=== PATIENT | female | born 1995 | race Caucasian/White ===

== ENCOUNTER 2024-04-07 10:42 | Inpatient (IN) | payer OTHER, SELFPAY ==
[2024-04-07] VITALS (32 sets, daily range): BP systolic 106–141; BP diastolic 51–86; PULSE 70–106; RESP 17–18; TEMP 36.9; O2SAT 98–99
[2024-04-07 10:58] LABS: Nitrazine Paper, PH Positive
[2024-04-07 11:12] LABS: Basophils % 0.3 %; Eosinophils # 0.1 10^3/uL (0.0-0.8); Eosinophils % 0.5 %; Hematocrit 34.8 % (36-47); Lymphocytes # 1.7 10^3/uL (0.8-4.8); Lymphocytes % 14.3 %; Mean Corpuscular HGB Conc 32.2 g/dL (30-55); Mean Corpuscular Hemoglobin 26.5 pg (27-33); Mean Corpuscular Volume 82.3 fl (85-98); Mean Platelet Volume 10.9 fL (7.4-10.4); Monocytes # 0.9 10^3/uL (0.2-0.9); Monocytes % 7.8 %; Neutrophils # 8.98 10^3/uL (1.8-7.7); Neutrophils % 76.5 %; Nucleated Red Blood Cells % 0 %; Platelet Count 230 10^3/cmm (157-399); Red Blood Count 4.23 10^6/uL (3.85-5.65); Red Cell Distribution Width 17.4 % (12.1-15.1); White Blood Count 11.74 10^3/uL (3.29-11.43)
[2024-04-07] MEDS: miSOPROStol 100 mcg tablet 25 MCG SUBLINGUAL ×3 (11:43→22:35)
--- NOTE | 2024-04-07 12:20 | PM.OPHPUD ---
Labor & Delivery H&P Update Date of Procedure: April 07, 2024 Date H&P Performed: 04/05/24 Changes to previous documentation: Spontaneous rupture of membranes Admission Diagnosis: 29-year-old 1 at 39 weeks estimated gestational age with spontaneous rupture membranes Planned procedure: Spontaneous vaginal delivery Other information: The patient is a pleasant 29-year-old female who is 39 weeks estimated gestational age presenting with spontaneous rupture membranes. She is having some contractions, but she is not feeling them. Her membranes ruptured at around 4:00 this morning. Otherwise her has been unremarkable. Her blood type is a positive. Her antibody screen is negative. Her glucose screen was 138. Related Problem List Diagnoses (1) 39 weeks gestation of : (2) Spontaneous rupture of membranes: A&P Assessment and plan (1) 39 weeks gestation of : We will augment labor as needed. The patient desires a natural labor. Status: Acute (2) Spontaneous rupture of membranes: Status: Acute PDMP PDMP Reviewed: Not Reviewed
[2024-04-07] MEDS: fentaNYL 50 mcg/mL INJ 2mL IVP ×2 (15:25→17:46)
[2024-04-07] MEDS: sodium chloride 0.9% 1,000 ML 999 ML IV ×2 (17:45→18:55)
--- NOTE | 2024-04-07 19:30 | ANES.PROC ---
Anesthesia Procedures Procedure/Date: 04/07/24 Epidural: Time Out Performed: Yes Consents Signed: Procedure Consent Consent: from patient, risks and benefits reviewed and patient agrees to proceed Lumbar Level: L3-L4 Epidural position: sitting Epidural procedure: sterile prep of area, 1% lidocaine to numb the area, 18 g needle, negative for paresthesia passed, test dose given, 1.5% xylocaine 1:200k epi, placed PCEA, no systemic response, sterile dressing applied, L.U.D. no apparent complications and 0.2% Ropiavacaine @ mls/hr (11) Additional Comments: HANS at 7, taped at 14 at skin. negative heme/CSF upon aspiration. tolerated well.
--- NOTE | 2024-04-07 19:30 | P.ANESUD_ITS ---
Pre-Anesthetic Update Pre-Anesthetic Assessment: Date of Surgery/Procedure: 04/07/24 Preop Ashley gnosis: labor pain Proposed Procedure: epidural Any changes to Pre-Anesthetic Assessment?: No Last Intake: 0500 on 04/07 Labs Last 48hrs: Short CBC 04/07/24 Range/Units 10:25 WBC 11.74 H (3.29-11.43) 10^ 3/uL Hgb 11.20 L (11.27-16.99) g/ dL Hct 34.8 L (36-47) % MCV 82.3 L (85-98) fl Plt Count 230 (157-399) 10^3/c mm Neut % (Auto) 76.5 % Neut # (Auto) 8.98 H (1.8-7.7) 10^3/u L Blood Bank 04/07/24 10:25 Blood Type A Positive Rho(D) Type Rh positive Antibody Screen Negative Vitals: Pulse Rate 96 04/07/24 19:33 Pulse Rhythm Regular 04/07/24 11:11 Pulse Strength 3+ Normal 04/07/24 11:11 Respiratory Rate 18 04/07/24 17:46 Respiratory Effort Spontaneous, Non- Labored 04/07/24 17:46 Respiratory Depth Normal 04/07/24 17:46 Respiratory Patter n Normal 04/07/24 17:46 Blood Pressure 138/64 04/07/24 19:33 Pulse Oximetry 99 04/07/24 19:33 Oxygen Delivery Me thod Room Air 04/07/24 11:11 Exam: Pre-Anes Outpt Exam: alert and oriented x 3 Cardiac Studies: No Data to Display
[2024-04-07] MEDS: sodium chloride 0.9% 1,000 ML 125 ML IV (22:34)
[2024-04-07] MEDS: ROPivacaine syringe 100 MG/50 ML SYRINGE 11 MG EPIDURAL (22:56)
[2024-04-08] VITALS (57 sets, daily range): BP systolic 102–140; BP diastolic 57–78; PULSE 75–113; RESP 16–20; TEMP 36.7–39.2; O2SAT 99
[2024-04-08] MEDS: ROPivacaine syringe 100 MG/50 ML SYRINGE 11 MG EPIDURAL ×2 (02:52→08:53)
[2024-04-08] MEDS: ondansetron 2 mg/ML SDV 2 mL 4 MG IVP ×2 (03:31→07:15)
[2024-04-08] MEDS: oxytocin 30 UNIT/500 ML BAG IV (06:13)
[2024-04-08] MEDS: dextrose 5%-lactated ringers 1,000 ML 125 ML IV ×2 (06:31→10:28)
[2024-04-08] MEDS: ampicillin 2,000 MG in sodium chloride 0.9% (plus) 50 ML 100 MG IV (06:32)
--- NOTE | 2024-04-08 08:05 | ANES.PROC ---
Anesthesia Procedures Procedure/Date: 04/08/24 Other Information: Called to bedside by RN stating pt has a hotspot in right hip. Assessed pt at bedside, pt c/o sharp, burning pain in right hip, rating pain 10/10. 3ml 0.25% bupivacaine and 100mcg fentanyl via epidural. Pt reassessed 10 min later and she states the pain has resolved.
[2024-04-08] MEDS: ampicillin 1,000 MG in sodium chloride 0.9% (plus) 50 ML 100 MG IV (10:28)
--- NOTE | 2024-04-08 11:45 | P.PCNOB_ITS ---
Delivery Note: Date of delivery: April 08, 2024 Pre-delivery diagnoses: 29-year-old 1 at 39 weeks estima tiara gestational age presenting with spontaneous rupture membranes Post-delivery diagnoses: Status post spontaneous vaginal delivery Procedure: Spontaneous vaginal delivery Delivering Physician: Jayy Levi Estimated blood loss (mL): 100 Pre-Delivery Course: The patient presented to the hospital with spontaneous rupture of membranes. She is having minimal contractions, and was not making change. As result Cytotec 25 mcg was placed multiple times. In addition her labor was augmented with Pitocin. An epidural was placed. The patient did have a temperature of 99.9 at about 24 hours post rupture membranes. I elected to place her on ampicillin. She progressed to complete. Delivery: DELIVERY: The patient progressed to complete without difficulty. She delivered a male with a weight of 6 pounds 9 ounces with Apgars of 3, 7. The baby was delivered from the DOMINGO position and placed on the mother's abdomen. The cord was then clamped and cut. There was a nuchal cord x 1 which was easily reduced over the head prior to delivery of the shoulder. There was no meconium. The placenta and 3 vessel cord were delivered intact shortly thereafter. The perineum and vaginal vault were carefully examined. A first-degree posterior midline tear was noted. It was repaired with 3-0 Vicryl in usual fashion.. Both the mother and the baby were in stable condition. Post-Delivery Status: Good A&P Assessment and plan (1) Spontaneous vaginal delivery: I anticipate routine care. (2) 39 weeks gestation of : PDMP PDMP Reviewed: Not Reviewed Coding Level of Care Code Acute Code for Chg Fwd Diagnoses Spontaneous vaginal delivery O80 39 weeks gestation of Z3A.39
--- NOTE | 2024-04-08 14:23 | PC.NURSE ---
Patient moved to room assisted by nurses by ambulation.
[2024-04-08] MEDS: docusate sodium 100 mg Capsule PO ×2 (18:45→20:21)
[2024-04-08] MEDS: ibuprofen 800 mg tablet PO (20:21)
[2024-04-09 03:57] VITALS: BP 136/85; PULSE 69; RESP 16; TEMP 36.7; O2SAT 97
[2024-04-09 04:40] LABS: Hematocrit 31.1 % (36-47); Mean Corpuscular HGB Conc 32.2 g/dL (30-55); Mean Corpuscular Hemoglobin 26.9 pg (27-33); Mean Corpuscular Volume 83.6 fl (85-98); Mean Platelet Volume 11.2 fL (7.4-10.4); Platelet Count 197 10^3/cmm (157-399); Red Blood Count 3.72 10^6/uL (3.85-5.65); Red Cell Distribution Width 18.2 % (12.1-15.1)
[2024-04-09] MEDS: docusate sodium 100 mg Capsule PO (08:59)
[2024-04-09] MEDS: ibuprofen 800 mg tablet PO ×2 (08:59→15:10)
[2024-04-09] MEDS: PRENATAL VIT NO.130/IRON/FOLIC 1 EACH TABLET PO (08:59)
--- NOTE | 2024-04-09 09:44 | P.DS_ITS ---
Discharge Providers [facility] Date of Admission: 04/07/24 10:42 Date of Discharge: 04/09/24 Attending Provider at Admission: Jayy Levi MD Attending Provider at Discharge: Jayy Levi MD Diagnoses at Discharge Discharge Diagnosis (1) Spontaneous vaginal delivery: Status: Acute (2) 39 weeks gestation of : Status: Acute Reason for Visit Reason for Visit: poss rom Hospital Course Hospital Course The patient arrived at the hospital spontaneous rupture membranes. Her labor was augmented with Cytotec. She progressed to complete and had an unremarkable delivery of a healthy appearing male infant. Her course has also been unremarkable. She is breast-feeding some but is converting more to bottlefeeding. Her bleeding has been within normal limits. Her pain is been well-controlled. Information Peripartum Data: Infant Delivery Method: Vaginal Physical Exam Narrative: The patient is alert. She appears comfortable. Her heart has a regular rate and rhythm with no murmurs appreciated. Lungs are clear to auscultation bilaterally. Her fundus is firm and below the umbilicus. Urinary Catheter Management: Johnson: Cath Placed During This Visit: yes, but has since been removed by the nurse Reason for Continuing Indwelling Catheter: Decision to DC Catheter Urinary Catheter Date of Insertion: 04/07/24 Urinary Catheter Time of Insertion: 20:08 Date Urinary Catheter Removed: 04/08/24 Time Urinary Catheter Discontinued: 11:10 Discharge Data Studies Completed and Pending Laboratory Results WBC 21.50 10^3/uL (3.29-11.43) H 04/09/24 03:56 RBC 3.72 10^6/uL (3.85-5.65) L 04/09/24 03:56 Hgb 10.00 g/dL (11.27-16.99) L 04/09/24 03:56 Hct 31.1 % (36-47) L 04/09/24 03:56 MCV 83.6 fl (85-98) L 04/09/24 03:56 MCH 26.9 pg (27-33) L 04/09/24 03:56 MCHC 32.2 g/dL (30-55) 04/09/24 03:56 RDW 18.2 % (12.1-15.1) H 04/09/24 03:56 Plt Count 197 10^3/cmm (157-399) 04/09/24 03:56 MPV 11.2 fL (7.4-10.4) H 04/09/24 03:56 Neut % (Auto) 76.5 % 04/07/24 10:25 Lymph % (Auto) 14.3 % 04/07/24 10:25 Scurry % (Auto) 7.8 % 04/07/24 10:25 Eos % (Auto) 0.5 % 04/07/24 10:25 Baso % (Auto) 0.3 % 04/07/24 10:25 Neut # (Auto) 8.98 10^3/uL (1.8-7.7) H 04/07/24 10:25 Lymph # (Auto) 1.7 10^3/uL (0.8-4.8) 04/07/24 10:25 Scurry # (Auto) 0.9 10^3/uL (0.2-0.9) 04/07/24 10:25 Eos # (Auto) 0.1 10^3/uL (0.0-0.8) 04/07/24 10:25 Baso # (Auto) 0.0 10^3/uL (0.0-0.1) 04/07/24 10:25 Nucleated RBC % (auto) 0 % 04/07/24 10:25 Nucleated RBCs # 0.0 /100WBC 04/07/24 10:25 Fluid pH (paper) Positive H 04/07/24 10:53 Blood Type A Positive 04/07/24 10:25 Rho(D) Type Rh positive 04/07/24 10:25 Antibody Screen Negative 04/07/24 10:25 Vitals Last Vital Signs Temp 98.0 F 04/09/24 03:57 Pulse 69 04/09/24 03:57 Resp 16 04/09/24 03:57 BP 136/85 04/09/24 03:57 Pulse Ox 97 04/09/24 03:57 O2 Del Method Room Air 04/09/24 03:57 Results Labs OB ([facility]): Blood Type A Positive 04/07/24 Antibody Screen Negative 04/07/24 Hct 31.1 % (36-47) L 04/09/24 Hgb 10.00 g/dL (11.27-16.99) L 04/09/24 Rho(D) Type Rh positive 04/07/24 Plt Count 197 10^3/cmm (157-399) 04/09/24 Discharge Plan Discharge Patient Disposition: Home Prescriptions: New ibuprofen 800 mg Tablet 800 mg PO TID Qty: 45 0RF Continued 1 tab PO DAILY Discontinued iron 1 tab PO DAILY Discharge Orders: Discharge Order (Routine); Ordered 04/09/24 Ordered By: Jayy Levi Referrals: Jayy Levi MD [Physician] - 6 Weeks Discharge Diet: Usual diet Discharge Activity: Limit activity as instructed Patient Instructions: Opioid Safety Discharge Attestations [facility] Time Spent in Discharge Care*: less than 30 min Coding Level of Care Code Acute Code for Chg Fwd Diagnoses Spontaneous vaginal delivery O80 39 weeks gestation of Z3A.39
[2024-04-09 10:37] VITALS: BP 99/64; PULSE 74; RESP 16; TEMP 36.7
[2024-04-09 16:00] VITALS: BP 99/63; PULSE 68; RESP 16; TEMP 36.7
[2024-04-09 18:43] VITALS: BP 99/63; PULSE 68; TEMP 36.7; O2SAT 98
--- NOTE | 2024-04-10 17:01 | ANE.PACU2 ---
Inpatient post-anesthesia follow up: Airway intact: Yes Vital signs: Temperature 98.0 F Pulse Rate 68 Respiratory Rate 16 Blood Pressure 99/63 Pulse Oximetry 98 Oxygen Delivery Me thod Room Air Oxygen Flow Rate Fraction of Inspir ed Oxygen Hydration adequate: Yes Nausea and vomiting: No Pain level: 1 Mental status: Baseline Epidural Start/End: Epidural Start Date: 04/07/24 Epidural Start Time: 19:11 Epidural End Date: 04/09/24 Epidural End Time: 18:43
== END 2024-04-09 18:47 | disposition home or self-care (01) | DRG 807 ==
LOC: OPOB 10:42 → OBGYN 10:42
PROVIDERS: Admitting Provider Family Medicine; Visit Provider Family Medicine
DX: O69.81X0 Labor and delivery complicated by cord around neck, without compression, not applicable or unspecified (principal); Z37.0 Single live birth; O70.0 First degree perineal laceration during delivery; Z3A.39 39 weeks gestation of pregnancy
CPT/HCPCS: 36415; 36416; 51702; 59025; 59409; 83986; 85025; 85027; 86850; 86900; 99211; J0290; J2405; J2590; J2795; J3010; J7030; J7121